=== PATIENT | female | born 1960 | race Caucasian/White ===

== ENCOUNTER 2017-11-18 11:15 | Emergency (ER) | payer OTHER ==
[~2017-11-18] VITALS: Ht 167.6 cm; Wt 71.0 kg
[~2017-11-18 11:15] MED LIST: SUCR1TAB PO
[2017-11-18 11:28] VITALS: BP 126/59; PULSE 69; RESP 15; TEMP 97.6; O2SAT 98
--- NOTE | 2017-11-18 12:04 | PD ---
HPI Chief Complaint: Edema Time Seen by Provider: 11:36 Travel History International Travel<30 days: No Contact w/Intl Traveler<30days: No Traveled to known affect area: No History of Present Illness HPI 57-year-old female presents emergency department for evaluation of right-sided swelling to the face for 3-4 days and a rash to the bilateral feet for approximately 1 month. Patient states that 3-4 days ago she woke up feeling pressure on the right side of her face associated dry eyes and postnasal drip. She denies any pain but states it feels pressure. She has no dental problems or history of significant dental work. Nothing improves relieves her swelling or pressure. Says that she has not tried any medication to relieve her symptoms because she is "very sensitive to medications". Says that she was in the yard 1 month ago and may have gotten into some plants causing a rash. Says that the rash is not painful or pruritic. The rash has not changed in size or color. She denies any changes in soaps, lotions, medications or other exposures. She has no other complaints today. [facility] Past Medical History Asthma: Yes (ALLERGY/SMOKE RELATED) Cancer: No Chest Pain: Yes Diabetes: No Diminished Hearing: No Glaucoma: No Hepatitis: No Hiatal Hernia: No Hypertension: No Thyroid Disease: No ?: Not LMP: UTERINE ABLATION Past Surgical History Abdominal Surgery: Yes (APPY) Appendectomy: Yes Gynecologic Surgery: Yes (UTERINE ABLATION, CERVICAL STITCH ) Oral Surgery: Yes (TONSILLECTOMY) Tonsillectomy: Yes Other Surgery: Yes (LT BREAST CYST BIOPSY 02/03. SINUS SX) Social History Alcohol Use: Yes (RARELY) Tobacco Use: No Substance Use: No Allergies-Medications (Allergen,Severity, Reaction): Coded Allergies: doxycycline (Unverified Allergy, Severe, vertigo, 11/18/17) ALL TETRACYCLINES minocycline (Unverified Allergy, Severe, vertigo, 11/18/17) ALL TETRACYCLINES tigecycline (Unverified Allergy, Severe, vertigo, 11/18/17) ALL TETRACYCLINES bee venom protein (honey bee) (Unverified Allergy, Mild, swelling tongue, 11/18/17) fire ant (Unverified Allergy, Mild, feet and mouth swelling, 11/18/17) Reported Meds & Prescriptions Reported Meds & Active Scripts Active Nystatin-Triamcinolone 100,000-0.1 Unit/Gm Cream 1 Applic TOPICAL BID 5 Days Prednisone 5 Mg Tab 5 Mg PO DAILY 7 Days Review of Systems Except as stated in HPI: all other systems reviewed are Neg Physical Exam Narrative GENERAL: Well-nourished, well-developed patient, in NAD SKIN: Focused skin assessment warm/dry. Bilateral feet with pinpoint, scattered lesions. blanches with pressure. no TTP , no excoriations HEAD: Normocephalic. Atraumatic. EYES: No scleral icterus. No injection or drainage. PERRLA, EOMI Right maxillary and frontal region appears slightly edematous when compared to the left, no tenderness palpation although says she has some pressure THROAT: No pharyngeal injection, exudates, or tonsillar hypertrophy. Airway is patent. NECK: Supple, trachea midline. No JVD or lymphadenopathy. No meningismus. CARDIOVASCULAR: Regular rate and rhythm without murmurs, gallops, or rubs. RESPIRATORY: Breath sounds equal bilaterally. No accessory muscle use. No wheezes, rales, or rhonchi MUSCULOSKELETAL: No cyanosis, or edema. BACK: Nontender without obvious deformity. No CVA tenderness. Data Data Last Documented VS Vital Signs Date Time Temp Pulse Resp B/P (MAP) Pulse Ox O2 Delivery O2 Flow Rate FiO2 11/18/17 11:28 97.6 69 15 126/59 (81) 98 Orders Orders Ed Discharge Order (11/18/17 12:08) MDM Medical Decision Making Medical Screen Exam Complete: Yes Emergency Medical Condition: Yes Differential Diagnosis Contact dermatitis, insect bites, cellulitis, vasculitis Narrative Course 57-year-old female presents emergency department for evaluation of right-sided swelling to the face for 3-4 days and a rash to the bilateral feet for approximately 1 month. Patient states that 3-4 days ago she woke up feeling pressure on the right side associated dry eyes and postnasal drip. She denies any pain but states it feels pressure. She has no dental problems or history of significant dental work. Nothing improves relieves her pain. Says that she has not tried any medication to relieve her symptoms because she is "very sensitive to medications". Says that she was in the yard 1 month ago and may have gotten into some plants causing a rash. Says that the rash is not painful or pruritic. The rash has not changed in size or color. She denies any changes in soaps, lotions, medications or other exposures. Denies chronic medical issues and medication use. Denies history of blood disorders. She has no other complaints today. Vital signs are stable. Physical exam findings consistent with mild edema of the maxillary sinus area and a nonspecific rash of the bilateral lower feet. I do not suspect any emergent process requiring imaging or lab work today. I suspect that she may have some contact dermatitis versus mild vasculitis of the lower extremities. In addition, I suspect she has some mild sinusitis of the right maxillary and frontal sinus area creating her symptoms. She is highly advised to follow up with the campaign manager and primary care physician. She will be discharged with topical nystatin/triamcinolone ointment and prednisone. She should return for worsening or persistent symptoms. Diagnosis Primary Impression: Sinusitis Qualified Codes: J01.00 - Acute maxillary sinusitis, unspecified Additional Impression: Rash and nonspecific skin eruption Referrals: [facility] [employer] [facility] Primary Care Physician Additional Instructions: Follow up with your primary care physician within 2-3 days. If your symptoms persist or worsen, return to the emergency department. Scripts Nystatin-Triamcinolone (Nystatin-Triamcinolone) 100,000-0.1 Unit/Gm Cream 1 APPLIC TOPICAL BID for Infection for 5 Days, #15 GM 0 Refills Prov: Fran Kelly MD 11/18/17 Prednisone (Prednisone) 5 Mg Tab 5 MG PO DAILY for 7 Days, #7 TAB 0 Refills Prov: Fran Kelly MD 11/18/17 Disposition: 01 DISCHARGE HOME Condition: Stable Julienne Rhodes November 18, 2017 12:04
[2017-11-18] MEDS ORDERED: NYSTCRE29 TOPICAL (12:05)
[2017-11-18] MEDS ORDERED: PRED5TAB PO (12:05)
== END 2017-11-18 12:41 | disposition home or self-care (01) ==
LOC: PHEFT 11:15
DX: J01.00 Acute maxillary sinusitis, unspecified (principal); R21 Rash and other nonspecific skin eruption; Z88.8 Allergy status to other drugs, medicaments and biological substances
CPT/HCPCS: 99283